=== PATIENT | male | born 1955 | race Hispanic/Latino ===

== ENCOUNTER 2019-02-21 10:31 | Emergency (ER) | payer OTHER ==
[~2019-02-21 10:31] MED LIST: AMIO200T5 PO; CLOP75TA32 PO; ISOS30TA6 PO; METF-446 PO; METO25TA6 PO
[2019-02-21] MEDS ORDERED: KETOROLAC TROMETHAMINE 60 MG/2 ML VIAL ONE (10:50)
== END 2019-02-21 11:33 | disposition home or self-care (01) ==
LOC: EDH 10:31
DX: S93.491A Sprain of other ligament of right ankle, initial encounter (principal); I25.10 Atherosclerotic heart disease of native coronary artery without angina pectoris; E11.9 Type 2 diabetes mellitus without complications; E78.5 Hyperlipidemia, unspecified; I10 Essential (primary) hypertension; Z87.891 Personal history of nicotine dependence; Z87.01 Personal history of pneumonia (recurrent); Z88.7 Allergy status to serum and vaccine; X50.1XXA Overexertion from prolonged static or awkward postures, initial encounter; Y93.89 Activity, other specified; Y92.89 Other specified places as the place of occurrence of the external cause; Y99.8 Other external cause status
CPT/HCPCS: 73610; 99284; J1885

== ENCOUNTER → 2019-06-21 | Outpatient (CLI) | payer OTHER | END | disposition home or self-care (01) | LOC: SHCH 11:24 | PROVIDERS: ATTEND Internal Medicine Cardiovascular Disease | DX: I10 Essential (primary) hypertension (principal) | CPT/HCPCS: 93306 ==

== ENCOUNTER 2020-07-28 17:55 | Emergency (ER) | payer OTHER ==
[~2020-07-28 17:55] MED LIST changes: -AMIO200T5 PO; +AMIO200T6 PO; -ISOS30TA6 PO; +ISOS30TA92 PO
== END 2020-07-28 19:21 | disposition home or self-care (01) ==
LOC: EDH 17:55
DX: R53.1 Weakness (principal); R06.02 Shortness of breath; E11.9 Type 2 diabetes mellitus without complications; I11.0 Hypertensive heart disease with heart failure; I50.9 Heart failure, unspecified; I25.10 Atherosclerotic heart disease of native coronary artery without angina pectoris; Z98.890 Other specified postprocedural states; Z88.2 Allergy status to sulfonamides; Z87.891 Personal history of nicotine dependence
CPT/HCPCS: 82948; 93005

== ENCOUNTER 2020-10-02 10:10 | Emergency (ER) | payer OTHER ==
[2020-10-02] MEDS ORDERED: HYDROCODONE/ACETAMINOPHEN 5/325 MG TAB ONE (11:00)
== END 2020-10-02 13:28 | disposition home or self-care (01) ==
LOC: EDH 10:10
DX: S06.0X0A Concussion without loss of consciousness, initial encounter (principal); E78.5 Hyperlipidemia, unspecified; I11.0 Hypertensive heart disease with heart failure; I50.9 Heart failure, unspecified; E11.9 Type 2 diabetes mellitus without complications; Z88.7 Allergy status to serum and vaccine; Z87.891 Personal history of nicotine dependence; Z95.1 Presence of aortocoronary bypass graft; V00.141A Fall from scooter (nonmotorized), initial encounter; Y93.89 Activity, other specified; Y92.89 Other specified places as the place of occurrence of the external cause; Y99.8 Other external cause status
CPT/HCPCS: 70450; 72125

== ENCOUNTER 2021-01-27 17:07 | Emergency (ER) | payer OTHER ==
[~2021-01-27] VITALS: Ht 182.9 cm; Wt 127.0 kg
[2021-01-27 17:39] VITALS: BP 108/55
[2021-01-27] MEDS ORDERED: TETRACAINE HCL 0.5% 4 ML OPHTH SOLN ONE (17:45)
[2021-01-27] MEDS ORDERED: KETOROLAC 30MG VIAL (30MG/ML) ONE (17:46)
[2021-01-27] MEDS ORDERED: FLUORESCEIN SODIUM 1 STRIP STRIP ONE (17:46)
[2021-01-27] MEDS ORDERED: FLUORESCEIN SODIUM 1 STRIP STRIP OP SCH (18:00)
[2021-01-27] MEDS ORDERED: TETRACAINE HCL 0.5% 4 ML OPHTH SOLN OP SCH (18:00)
[2021-01-27] MEDS ORDERED: KETOROLAC 30MG VIAL (30MG/ML) IM ONE (18:00)
[2021-01-27] MEDS ORDERED: ERYTHROMYCIN BASE 0.5% OPHTH OINT 1 GM TUBE ONE (19:01)
[2021-01-27 19:10] VITALS: BP 105/61
[2021-01-27] MEDS ORDERED: IBUP-2070 PO (19:14)
[2021-01-27] MEDS ORDERED: ERYT1OIN7 OP (19:14)
[2021-01-27] MEDS ORDERED: ERYTHROMYCIN BASE 0.5% OPHTH OINT 1 GM TUBE OS SCH (19:30)
== END 2021-01-27 19:25 | disposition home or self-care (01) ==
LOC: EDH 17:07
DX: S05.02XA Injury of conjunctiva and corneal abrasion without foreign body, left eye, initial encounter (principal); S40.012A Contusion of left shoulder, initial encounter; E78.00 Pure hypercholesterolemia, unspecified; I10 Essential (primary) hypertension; J44.9 Chronic obstructive pulmonary disease, unspecified; Z79.1 Long term (current) use of non-steroidal anti-inflammatories (NSAID); Z79.84 Long term (current) use of oral hypoglycemic drugs; Z79.899 Other long term (current) drug therapy; X58.XXXA Exposure to other specified factors, initial encounter; Y93.89 Activity, other specified; Y92.89 Other specified places as the place of occurrence of the external cause; Y99.8 Other external cause status
CPT/HCPCS: 73030; J1885

== ENCOUNTER 2021-02-28 16:10 | Emergency (ER) | payer OTHER ==
[~2021-02-28] VITALS: Ht 170.2 cm; Wt 99.8 kg
[~2021-02-28 16:10] MED LIST changes: +ERYT1OIN7 OP; +IBUP-2070 PO
[2021-02-28 16:57] LABS: BASOPHILS % (AUTO) 0.8 % (0.0-5.0); EOSINOPHILS % (AUTO) 2.2 % (0.0-8.0); HEMATOCRIT 45.6 % (42-54); LYMPHOCYTES % (AUTO) 27.1 % (21.0-51.0); MEAN CORPUSCULAR HEMOGLOBIN 28.5 pg (27.0-33.0); MEAN CORPUSCULAR HGB CONC 33.3 g/dL (32.0-36.0); MEAN CORPUSCULAR VOLUME 85.6 fL (79-99); MONOCYTES % (AUTO) 12.4 % (3.0-13.0); NEUTROPHILS % (AUTO) 56.8 % (40.0-77.0); PLATELET COUNT (AUTO) 190 K/uL (130-400); RED BLOOD CELL COUNT(AUTO) 5.33 MIL/uL (4.50-6.20); RED CELL DISTRIBUTION WIDTH 13.2 % (11.0-15.5); WHITE BLOOD COUNT (AUTO) 7.4 K/uL (4.8-10.8)
[2021-02-28 17:12] LABS: CREATININE 1.2 mg/dL (0.5-1.5); POTASSIUM 4.2 mmol/L (3.5-5.1)
[2021-02-28 17:17] LABS: ALBUMIN 3.5 g/dL (3.5-5.0); BILIRUBIN,TOTAL 0.4 mg/dL (0.2-1.0); TOTAL PROTEIN, SERUM 7.3 g/dL (6.0-8.3)
[2021-02-28 17:21] LABS: B-TYPE NATRIURETIC PEPTIDE 69 pg/mL (0-100)
[2021-02-28] MEDS ORDERED: ACETAMINOPHEN 500 MG TABLET ONE (19:34)
[2021-02-28] MEDS ORDERED: ACETAMINOPHEN 500 MG TABLET PO ONE (20:00)
[2021-02-28 21:30] VITALS: BP 118/77
== END 2021-02-28 21:26 | disposition home or self-care (01) ==
LOC: EDH 16:10
DX: R07.89 Other chest pain (principal); I25.10 Atherosclerotic heart disease of native coronary artery without angina pectoris; J44.9 Chronic obstructive pulmonary disease, unspecified; E11.9 Type 2 diabetes mellitus without complications; I10 Essential (primary) hypertension; E78.00 Pure hypercholesterolemia, unspecified; Z95.1 Presence of aortocoronary bypass graft; Z88.7 Allergy status to serum and vaccine; Z79.899 Other long term (current) drug therapy
CPT/HCPCS: 36415; 71045; 80053; 82550; 83880; 84484; 85025; 93005

== ENCOUNTER 2022-04-05 11:49 | Emergency (ER) | payer OTHER ==
[~2022-04-05] VITALS: Ht 172.7 cm; Wt 90.3 kg
[~2022-04-05 11:49] MED LIST changes: -AMIO200T6 PO; +AMIO200T68 PO
[2022-04-05] MEDS ORDERED: DIPH,PERTUSS(ACELL),TET VAC/PF 0.5 ML VIAL IM ONE (12:30)
[2022-04-05 13:12] LABS: BASOPHILS % (AUTO) 0.8 % (0.0-5.0); EOSINOPHILS % (AUTO) 1.3 % (0.0-8.0); HEMATOCRIT 44.1 % (42-54); MEAN CORPUSCULAR HEMOGLOBIN 28.3 pg (27.0-33.0); MEAN CORPUSCULAR HGB CONC 33.1 g/dL (32.0-36.0); MEAN CORPUSCULAR VOLUME 85.5 fL (79-99); MONOCYTES % (AUTO) 12.1 % (3.0-13.0); NEUTROPHILS % (AUTO) 61.8 % (40.0-77.0); PLATELET COUNT (AUTO) 179 K/uL (130-400); RED BLOOD CELL COUNT(AUTO) 5.16 MIL/uL (4.50-6.20); RED CELL DISTRIBUTION WIDTH 13.3 % (11.0-15.5)
[2022-04-05 13:28] LABS: CREATININE 0.8 mg/dL (0.5-1.5); POTASSIUM 4.4 mmol/L (3.5-5.1)
[2022-04-05 13:33] LABS: ALBUMIN 3.6 g/dL (3.5-5.0); TOTAL PROTEIN, SERUM 7.5 g/dL (6.0-8.3)
[2022-04-05] MEDS ORDERED: ACETAMINOPHEN 500 MG TABLET ONE (14:56)
[2022-04-05] MEDS ORDERED: ACETAMINOPHEN 500 MG TABLET PO ONE (15:00)
[2022-04-05 15:12] VITALS: BP 131/74
== END 2022-04-05 15:34 | disposition home or self-care (01) ==
LOC: EDH 11:49
DX: S01.01XA Laceration without foreign body of scalp, initial encounter (principal); E11.9 Type 2 diabetes mellitus without complications; E78.00 Pure hypercholesterolemia, unspecified; I10 Essential (primary) hypertension; I25.10 Atherosclerotic heart disease of native coronary artery without angina pectoris; Z79.1 Long term (current) use of non-steroidal anti-inflammatories (NSAID); Z79.84 Long term (current) use of oral hypoglycemic drugs; Z88.7 Allergy status to serum and vaccine; Z95.1 Presence of aortocoronary bypass graft; X58.XXXA Exposure to other specified factors, initial encounter; Y93.89 Activity, other specified; Y92.89 Other specified places as the place of occurrence of the external cause; Y99.8 Other external cause status
CPT/HCPCS: 12004; 36415; 70450; 71045; 72125; 80053; 84484; 85025; 90471; 90715; 93005

== ENCOUNTER 2022-12-19 10:44 | Emergency (ER) | payer OTHER ==
[~2022-12-19] VITALS: Ht 180.3 cm; Wt 95.3 kg
[2022-12-19 11:06] LABS: MEAN CORPUSCULAR HEMOGLOBIN 28.3 pg (27.0-33.0); MEAN CORPUSCULAR HGB CONC 33.5 g/dL (32.0-36.0); MEAN CORPUSCULAR VOLUME 84.6 fL (79-99); RED BLOOD CELL COUNT(AUTO) 5.08 MIL/uL (4.50-6.20); RED CELL DISTRIBUTION WIDTH 12.8 % (11.0-15.5); WHITE BLOOD COUNT (AUTO) 7.1 K/uL (4.8-10.8)
[2022-12-19 11:20] LABS: INFLUENZA TYPE A Negative For Type A (NEGATIVE); INFLUENZA TYPE B Negative For Type B (NEGATIVE)
[2022-12-19 11:21] LABS: ALBUMIN 3.3 g/dL (3.5-5.0); BILIRUBIN,TOTAL 0.3 mg/dL (0.2-1.0); CREATININE 0.8 mg/dL (0.5-1.5); TOTAL PROTEIN, SERUM 6.8 g/dL (6.0-8.3)
[2022-12-19 11:55] LABS: APPEARANCE,URINE CLEAR (CLEAR); BILIRUBIN,URINE NEGATIVE (NEGATIVE); COLOR,URINE LIGHT-YELLOW (YELLOW); GLUCOSE, URINE (UA) NEGATIVE (NEGATIVE); KETONES,URINE NEGATIVE (NEGATIVE); LEUKOCYTE ESTERASE ,URINE NEGATIVE Leu/uL (NEGATIVE); NITRATE,URINE NEGATIVE (NEGATIVE); OCCULT BLOOD,URINE NEGATIVE (NEGATIVE); PROTEIN,URINE NEGATIVE (NEGATIVE); UROBILINOGEN,URINE 0.2 mg/dL (0.2-1.0)
[2022-12-19 12:02] LABS: ADD UA MICROSCOPIC NO
[2022-12-19 12:22] LABS: SARS-CoV-2, RNA, NAAT NEGATIVE SARS CoV-2 (NEGATIVE)
[2022-12-19 14:39] VITALS: BP 124/70; PULSE 74; RESP 20; O2SAT 99
== END 2022-12-19 15:53 | disposition home or self-care (01) ==
LOC: EDH 10:44 → EEVIPCON 10:44 → EDH 15:53
DX: R06.02 Shortness of breath (principal); I10 Essential (primary) hypertension; E78.00 Pure hypercholesterolemia, unspecified; E11.9 Type 2 diabetes mellitus without complications; Z88.7 Allergy status to serum and vaccine; Z79.4 Long term (current) use of insulin; Z79.899 Other long term (current) drug therapy; Z20.822 Contact with and (suspected) exposure to COVID-19
CPT/HCPCS: 99285; 71045; 87635; 84484; 80053; 83880; 85027; 85378; 87804 ×2; 81003; 36415; 93005; C9803

== ENCOUNTER 2023-04-18 21:03 | Emergency (ER) | payer OTHER ==
[~2023-04-18] VITALS: Ht 180.3 cm; Wt 114.3 kg
[2023-04-18 21:03] VITALS: BP 53/30
[2023-04-18] MEDS ORDERED: LIDOCAINE PF 100MG/5ML (2%) SYRINGE 5ML IVP ONE (21:04)
[2023-04-18] MEDS ORDERED: CACL 1GM SYG IVP ONE (21:04)
[2023-04-18] MEDS ORDERED: EPINEPHRINE 1MG/10ML(1:10,000) 0.1 MG/ML SYG IVP ONE ×2 (21:04)
[2023-04-18] MEDS ORDERED: SODIUM BICARB 8.4% 50ML SYRINGE IVP ONE ×2 (21:04)
[2023-04-18 21:44] LABS: ABG BASE EXCESS -17.8 mmol/L (-2.0-3.0); ABG HCO3 7.6 mmol/L (21.0-28.0); ABG OXYGEN SATURATION 99.6 % (95.0-99.0); ABG PCO2 19 mmHg (35-48); ABG PH 7.218 (7.35-7.450); CARBON MONOXIDE 0.2; HHb 0.4; PO2, ARTERIAL BG 469.1 mmHg (83.0-108.0); VENT MODE, BG 100 NRBM (ROOM AIR)
[2023-04-18 21:53] VITALS: PULSE 110; RESP 31; O2SAT 99
[2023-04-18 21:53] LABS: BASOPHILS # (AUTO) 0.07 K/uL (0.00-0.20); BASOPHILS % (AUTO) 0.6 % (0.0-5.0); EOSINOPHILS # (AUTO) 0.14 K/uL (0.00-0.70); EOSINOPHILS % (AUTO) 1.2 % (0.0-8.0); HEMATOCRIT 44.7 % (42-54); IMMATURE GRANULOCYTE ABSOLUTE 0.31 K/uL (0-1); LYMPHOCYTES # (AUTO) 4.6 K/uL (1.0-4.8); MEAN CORPUSCULAR HEMOGLOBIN 29.3 pg (27.0-33.0); MEAN CORPUSCULAR HGB CONC 31.3 g/dL (32.0-36.0); MEAN CORPUSCULAR VOLUME 93.5 fL (79-99); MONOCYTES # (AUTO) 1.1 K/uL (0.1-1.0); MONOCYTES % (AUTO) 9.3 % (3.0-13.0); NEUTROPHILS # (AUTO) 5.6 K/uL (1.8-7.7); NEUTROPHILS % (AUTO) 47.3 % (40.0-77.0); PLATELET COUNT (AUTO) 157 K/uL (130-400); RED BLOOD CELL COUNT(AUTO) 4.78 MIL/uL (4.50-6.20); RED CELL DISTRIBUTION WIDTH 12.9 % (11.0-15.5); WHITE BLOOD COUNT (AUTO) 11.9 K/uL (4.8-10.8)
[2023-04-18] MEDS ORDERED: VASOPRESSIN 40 UNITS in 0.9%NACL 50ML 40 ML IV SCH (22:00)
[2023-04-18] MEDS ORDERED: CEFTRIAXONE 2GM VIAL IVPB ONE (22:00)
[2023-04-18] MEDS ORDERED: PHENYLEPHRINE HCL 50 MG in 0.9% NACL 250ML 250 ML IV PRN (22:00)
[2023-04-18 22:04] LABS: INR 1.13 (0.85-1.15)
[2023-04-18 22:05] LABS: PARTIAL THROMBOPLASTIN TIME 27.1 SEC (26.3-35.5)
[2023-04-18 22:06] LABS: CREATININE 1.2 mg/dL (0.5-1.5); POTASSIUM 4.1 mmol/L (3.5-5.1)
[2023-04-18 22:13] LABS: ALBUMIN 2.6 g/dL (3.5-5.0); BILIRUBIN,TOTAL 0.5 mg/dL (0.2-1.0); MAGNESIUM 1.8 mg/dL (1.80-2.40); TOTAL PROTEIN, SERUM 5.5 g/dL (6.0-8.3)
[2023-04-18 22:14] LABS: RAPID GROUP A STREP negative (NEGATIVE)
[2023-04-18 22:21] LABS: SARS-CoV-2, RNA, NAAT NEGATIVE SARS CoV-2 (NEGATIVE)
[2023-04-18 22:24] LABS: INFLUENZA TYPE A Negative For Type A (NEGATIVE); INFLUENZA TYPE B Negative For Type B (NEGATIVE)
== END 2023-04-19 02:15 ==
LOC: EEVIPCON 21:03 → EDH 21:03
DX: I46.9 Cardiac arrest, cause unspecified (principal); R65.11 Systemic inflammatory response syndrome (SIRS) of non-infectious origin with acute organ dysfunction; E11.9 Type 2 diabetes mellitus without complications; I10 Essential (primary) hypertension; I48.91 Unspecified atrial fibrillation; Z79.02 Long term (current) use of antithrombotics/antiplatelets; Z79.84 Long term (current) use of oral hypoglycemic drugs; Z79.899 Other long term (current) drug therapy; Z88.7 Allergy status to serum and vaccine; Z95.1 Presence of aortocoronary bypass graft; Z20.822 Contact with and (suspected) exposure to COVID-19
CPT/HCPCS: 99291; 92950; 31500; 71045; 87635; 82947; 82550; 83735; 84484; 80053; 82803; 83880; 85025; 85610; 85730; 87040 ×2; 87880; 87804 ×2; 83605 ×2; 36415; 94660; 36600; 82435; 84132; 84295; 85018; C9803; J3490 ×5; J0696; J2001; J0171 ×2; J2371

== ENCOUNTER 2023-04-18 21:15 | Emergency (ER) | payer OTHER ==
[~2023-04-18] VITALS: Ht 180.3 cm; Wt 114.3 kg
[2023-04-18] MEDS ORDERED: CEFTRIAXONE 2GM VIAL ONE (21:19)
[2023-04-18] MEDS ORDERED: NOREPINEPHRIN 4MG/NS 250ML 250 ML IV ONE (21:20)
[2023-04-18] MEDS ORDERED: PHENYLEPHRINE HCL 10 MG/ML 1ML VIAL IV ONE (21:47)
[2023-04-18] MEDS ORDERED: VASOPRESSIN 20 UNITS/ML 1ML VIAL ONE (21:48)
[2023-04-18 22:00] VITALS: BP 142/93; PULSE 136; RESP 32; O2SAT 93
== END 2023-04-19 03:32 ==
LOC: EEVIPCON 21:15 → EDH 21:15
DX: I46.9 Cardiac arrest, cause unspecified (principal)
CPT/HCPCS: J3490; J0696; J2371